=== PATIENT | female | born 1925 | race Caucasian/White ===

== ENCOUNTER 2016-12-15 11:49 | Emergency (ER) | payer MEDICARE ==
[2016-12-15 11:49] VITALS: BMI 25.7
[2016-12-15 12:13] VITALS: TEMP 97.5
--- NOTE | 2016-12-15 13:13 | EDPRACDOC ---
- General Chief Complaint: Fall Stated Complaint: FALL Time Seen by Provider: 12/15/16 13:00 Information Source: Patient - History of Present Illness Onset: WORKERS COMPENSATION CLAIMS SPECIALIST HPI: PT UNWITNESSED FALL AT SNF, PT DEMENTED AND CANNOT PROVIDE ACCURATE HPI. NO OBVIOUS DEFORMITY AT THIS TIME. PER RECORDS PT WAS C/O RIGHT HIP ANKLE FOOT AND RT WRIST PAIN. PT HAS NO C/O AT THIS TIME. Pain Severity: Reports: None Injuries/Pain Location: Reports: upper extremity, lower extremity Reason for Fall: Reports: unknown Loss of Consciousness: unsure Associated Symptoms (Fall): Reports: denies symptoms Allergies/Adverse Reactions: Allergies ciprofloxacin HCl [From Cipro] Allergy (Verified 12/15/16 12:13) Unknown/See Comments PT UNSURE OF REACTION Home Medications: Ambulatory Orders Acetaminophen [Tylenol Extra Strength] 500 mg PO Q8H PRN 01/15/14 Aspirin (Enteric Coated) [Halfprin] 81 [place] 79901/15/14 Calcium Carbonate + Vitamin D [Oscal with Vitamin D] 500 mg PO TID 01/15/14 Cetirizine HCl [Zyrtec] 10 [place] 79901/15/14 Cholecalciferol (Vitamin D3) [Vitamin D3 (cholecalciferol)] 2,000 [place] 79901/15/14 Donepezil HCl [Aricept] 10 mg PO 199901/15/14 Gabapentin [Neurontin] 200 mg PO 199901/15/14 Ipratropium [Atrovent 0.06% Nasal [place]] 2 spr DI TID 01/15/14 Lorazepam [Ativan] 0.5 mg PO 199901/15/14 Magnesium Hydroxide [Milk of Magnesia] 30 ml PO HS PRN 01/15/14 Magnesium Oxide [Mag-Ox] 400 mg PO BID 01/15/14 Mirtazapine [Remeron] 30 mg PO 199901/15/14 Multivit-Min/FA/Lutein/Zeaxant [Icaps Mv Tablet] 1 [place] 79901/15/14 Omeprazole [Prilosec] 40 [place] PO 79901/15/14 Quetiapine Fumarate [Seroquel] 25 mg PO BID 01/15/14 Lisinopril [Zestril] 20 mg PO 0810/22/15 Lorazepam [Ativan] 0.5 mg PO TID PRN 01/21/16 Wheat Dextrin [Benefiber] 1 pack PO 1800 01/21/16 Acetaminophen Ex Str Tablet [TYLENOL EXTRA STRENGTH Tablet] 500 mg PO 00 12/15 Amlodipine [Norvasc] [place] [address]9912/15/16 Ensure [Ensure Plus (Vanilla)] 240 ml PO BID 12/15/16 Hyoscyamine [Levsin-Sl, Hyomax] 0.125 mg SL Q4H PRN 12/15/16 Menthol/Zinc Oxide [Dermaseptin Ointment] 113 gm TOP .WITH EACH TOILETING ED Past Medical History - History Reviewed Yes Nurses notes reviewed and agree except as marked Travel Outside of [place] in the Last 3 Months?: No Information Unobtainable: Yes Unable to obtain information due to patient condition - Patient Medical History Neurological History: Reports: Dementia Cardiac History: Reports: Hypertension Respiratory History: Reports: Pulmonary Embolism GI/ History: Reports: Urinary Tract Infection Musculoskeletal History: Reports: Osteoarthritis Psychological History: Reports: Depression, Anxiety Systemic History: Reports: Anemia. Denies: Cancer Surgical History: Reports: Other (BILATERAL KNEES) - Family Medical History Reports: Cancer (SISTER-BREAST) - Social Medical History Smoking Status: Never smoker ETOH: None Substance Abuse: None Lives With: Other Lives In: Snf Facility EDM Review of Systems - Review of Systems ROS Negative Except as Marked: Yes All systems reviewed and were negative except as marked ROS Unobtainable: Yes Review of systems cannot be obtained due to the patient's medical condition (DEMENTIA) Constitutional: No Symptoms Reported. negative: Fever, Chills, Weakness, Fatigue, Loss of Appetite Eyes: No Symptoms Reported. negative: Redness, Blurred Vision, Double Vision, Discharge, Pain, Light Sensitive, Photophobia Ears: No Symptoms Reported. negative: Pain, Hearing Loss, Drainage, Ear Pulling Throat: No Symptoms Reported. negative: Pain, Swelling Nose: No Symptoms Reported. negative: Congestion, Bleeding, Discharge, Injection, Swelling, Deformity, Ecchymosis, Tender, Abrasion, Laceration Mouth: No Symptoms Reported. negative: Pain, Drooling Respiratory: No Symptoms Reported. negative: Cough, Brassy Cough, Barky Cough, Shortness of Breath, Wheezing, Hemoptysis Cardiovascular: No Symptoms Reported. negative: Chest Pain, Palpitations, Syncope, Edema, Orthopnea, PND, Skin Mottling, Cyanosis Gastrointestinal: No Symptoms Reported. negative: Pain, Constipation, Nausea, Vomiting, Diarrhea, Melena, Formula Intolerance Genitourinary: No Symptoms Reported. negative: Dysuria, Hematuria, Frequency, Discharge, Bleeding, Testicular Pain, Neurological: No Symptoms Reported. negative: Headache, Dizziness, Seizure, Numbness, Weakness, Speech Difficulty, Gait Difficulty Musculoskeletal: No Symptoms Reported. negative: Neck, Chestwall, Ribs, Back, Shoulder, Arm, Elbow, Forearm, Wrist, Hand, Pelvis, Hip, Femur, Knee, Leg, Ankle , Foot Integumentary: No Symptoms Reported. negative: Itching, Rash, Bruising, Wound Allergic/Immunologic: No Symptoms Reported. negative: Hives, Itching Hematologic: No Symptoms Reported. negative: Lymphadenopathy, Easy Bruising, Easy Bleeding Endocrine: No Symptoms Reported. negative: Weight Gain, Weight Loss Psychiatric: No Symptoms Reported. negative: Anxiety, Depression, Hallucinations, Insomnia, Suicidal - Physical Exam Constitutional: Alert (Awake), Confused (DEMENTIA) Oriented to: Unable to Test Last recorded Vital Signs: Last Vital Signs Temp 97.5 F 12/15/16 12:05 Pulse 73 12/15/16 13:04 Resp 18 12/15/16 13:04 BP 152/67 12/15/16 13:04 Pulse Ox 97 12/15/16 13:04 Oxygen Pulse Oxygen Saturation 97 O2 Device Room Air Oxygen Flow Rate Fraction of Inspired Oxygen ( FIO2) - HEENT Head: Normal ( normocephalic) Eye Exam: Normal (PERRL, EOMI, Sclera white) Oropharynx: Normal (Pharynx:Moist without exudate,Gums-no swelling) Tympanic Membrane: Normal ENT EAC: Normal TMJ: Normal Nose: No Symptoms Reported (septum midline) Neck: Normal (FROM, trachea at midline) - Respiratory/Cardiovascular Respiratory: Normal - CTA (BBS clear to auscultation without adventitious sounds ) Cardiovascular: Normal (RRR without murmur, gallop or rub) - GI Auscultation: Normal (NABS) Palpation: Normal (Soft,No rebound or guarding, non distended) Tenderness: Non tender Jaramillo's Sign: Negative - Bladder: Normal - Musculoskeletal Back: Normal (Non-Tender) Extremities: Normal (Normal tone, Pulses 2+ No cyanosis or edema, FROM) Musculoskeletal Comment: BILATERAL HIPS FLEXED TO 90 DEGREES INTERNALLY AND EXTERNALLY ROTATED WITH C/O PAIN. - Integumentary Skin: Normal, Warm, Dry Lymphatics: Normal (no adenopathy) - Neurologic Memory Impaired: Normal Motor Function: Normal (Normal tone, Pulses 2+ No cyanosis or edema, FROM) Cranial Nerve: Normal (CN II-X11 intact sensation, strength 5/5) Cerebellar: Normal Mood Description: Normal Perception: Normal ED Injury/Fall Exam - Physical Exam Head Injury: no evidence of injury Extremity Exam: no evidence of injury, normal range of motion, non-tender, no pedal edema Skin: Normal, Warm, Dry - [place] Coma Score Best Eye Response (Gabby): (4) open spontaneously Best Verbal Response (Valencia): (4) confused conversation Best Motor Response (Valencia): (6) obeys commands Gabby Total: 14 - Differential Diagnosis Abrasion, Contusion, Fall, Fracture, Sprain, Strain - Diagnostic Imaging PELVIS Image interpreted by: Radiologist IMPRESSION: Negative. Diffuse osteopenia. RT KNEE Image interpreted by: Radiologist IMPRESSION: Prior right knee replacement. No acute findings. WRIST Image interpreted by: Radiologist IMPRESSION: Osteoarthritis of the first carpometacarpal joint. No acute abnormality seen in the right wrist. Decision Time to Discharge: 15:23 - Departure Disposition: Sn[facility] Facility Condition: Stable Final Diagnosis: MECHANICAL FALL Contusion, hip Qualifiers: Encounter type: initial encounter Laterality: right Qualified Code(s): S70.01XA - Contusion of right hip, initial encounter Instructions: RICE: Routine Care for Injuries Education/Counseling Given To: Patient Education/Counseling Given Regarding: Diagnosis, Treatment, Prognosis, Follow Up Referrals: Tyson Almodovar MD [Primary Care Provider] - One Week Prescriptions: No Action Magnesium Hydroxide [Milk of Magnesia] 30 ml PO HS PRN PRN Reason: Constipation Cholecalciferol (Vitamin D3) [Vitamin D3 (cholecalciferol)] 2,000 units PO 0800 Acetaminophen [Tylenol Extra Strength] 500 mg PO Q8H PRN PRN Reason: Mild Pain Or Fever Quetiapine Fumarate [Seroquel] 25 mg PO BID Calcium Carbonate + Vitamin D [Oscal with Vitamin D] 500 mg PO TID Omeprazole [Prilosec] 40 mg PO 0800 Mirtazapine [Remeron] 30 mg PO 2000 Magnesium Oxide [Mag-Ox] 400 mg PO BID Lorazepam [Ativan] 0.5 mg PO 2000 Ipratropium [Atrovent 0.06% Nasal [place]] 2 spr DI TID Multivit-Min/FA/Lutein/Zeaxant [Icaps Mv Tablet] 1 tab PO 0800 Gabapentin [Neurontin] 200 mg PO 2000 Donepezil HCl [Aricept] 10 mg PO 2000 Cetirizine HCl [Zyrtec] 10 mg PO 0800 Aspirin (Enteric Coated) [Halfprin] 81 mg PO 0800 Lisinopril [Zestril] 20 mg PO 0800 Wheat Dextrin [Benefiber] 1 pack PO 1800 Lorazepam [Ativan] 0.5 mg PO TID PRN PRN Reason: AGITATION Menthol/Zinc Oxide [Dermaseptin Ointment] 113 gm TOP .WITH EACH TOILETING Acetaminophen Ex Str Tablet [TYLENOL EXTRA STRENGTH Tablet] 500 mg PO 0800 Ensure [Ensure Plus (Vanilla)] 240 ml PO BID Amlodipine [Norvasc] 10 mg PO 0800 Hyoscyamine [Levsin-Sl, Hyomax] 0.125 mg SL Q4H PRN PRN Reason: Excessive Oral Secretions
--- NOTE | 2016-12-15 13:44 | DIRPT ---
CLINICAL DATA: Acute right ankle pain after unwitnessed fall at nursing facility. Initial encounter. EXAM: RIGHT ANKLE - COMPLETE 3+ VIEW COMPARISON: None. FINDINGS: There is no evidence of fracture, dislocation, or joint effusion. There is no evidence of arthropathy or other focal bone abnormality. Soft tissues are unremarkable. IMPRESSION: Normal right ankle. Electronically Signed By: Morgan Venegas Jr, M.D. On: 12/15/2016 13:42
--- NOTE | 2016-12-15 13:46 | DIRPT ---
CLINICAL DATA: Unwitnessed fall. Pain EXAM: RIGHT KNEE - COMPLETE 4+ VIEW COMPARISON: 01/21/2016 FINDINGS: Changes of left knee replacement. No hardware or bony complicating feature. No fracture, subluxation or dislocation. No visible joint effusion. Vascular stent noted posterior to the knee. IMPRESSION: Prior right knee replacement. No acute findings. Electronically Signed By: Jonah Hodges M.D. On: 12/15/2016 13:43
--- NOTE | 2016-12-15 13:49 | DIRPT ---
CLINICAL DATA: Acute right wrist pain after unwitnessed fall at nursing facility. EXAM: RIGHT WRIST - COMPLETE 3+ VIEW COMPARISON: February 20, 2014. FINDINGS: There is no evidence of acute fracture or dislocation. Severe narrowing and sclerosis of first carpometacarpal joint is noted. Soft tissues are unremarkable. IMPRESSION: Osteoarthritis of the first carpometacarpal joint. No acute abnormality seen in the right wrist. Electronically Signed By: Morgan Venegas Jr, M.D. On: 12/15/2016 13:46
[2016-12-15 14:12] LABS: AMORPHOUS 2+; LEUKOCYTES/URINE NEG (NEGATIVE); NITRITE/URINE NEG (NEGATIVE); URINE OCCULT BLOOD NEG (NEG/TRACE)
--- NOTE | 2016-12-15 14:44 | DIRPT ---
CLINICAL DATA: Fall, pain EXAM: PELVIS - 1-2 VIEW COMPARISON: 01/21/2016 FINDINGS: There is no evidence of pelvic fracture or diastasis. No pelvic bone lesions are seen. There is diffuse osteopenia. Moderate colonic stool and some colonic gas noted distal colon. IMPRESSION: Negative. Diffuse osteopenia. Electronically Signed By: Jose Saenz M.D. On: 12/15/2016 14:17
[2016-12-15 16:31] VITALS: BP 176/74; PULSE 85
== END 2016-12-15 17:05 | disposition home or self-care (01) ==
LOC: ED 11:49
DX: S70.01XA Contusion of right hip, initial encounter (principal); W19.XXXA Unspecified fall, initial encounter; Y93.9 Activity, unspecified; Y92.129 Unspecified place in nursing home as the place of occurrence of the external cause
CPT/HCPCS: 72170; 81001; 99283